=== PATIENT | female | born 1990 | race African-American/Black ===

== ENCOUNTER 2022-06-05 22:30 | Emergency (ER) | payer MEDICAID ==
[2022-06-05] MEDS ORDERED: Proparacaine 0.5% Opth 15 ML BOT ONE (23:36)
[2022-06-05] MEDS ORDERED: Fluorescein Opthalmic Strip ONE ×2 (23:36→23:46)
== END 2022-06-05 23:59 | disposition home or self-care (01) ==
LOC: ERS 22:30
DX: H10.9 Unspecified conjunctivitis (principal); B20 Human immunodeficiency virus [HIV] disease; F17.210 Nicotine dependence, cigarettes, uncomplicated
CPT/HCPCS: 99282